=== PATIENT | male | born 1990 ===

== ENCOUNTER 2022-10-02 | Outpatient (REF) | payer SELFPAY ==
[2022-10-03 12:43] LABS: HIV AB/AG Nonreactive (Nonreactive); HIV Num 1 0.05 S/CO (0.00-0.99)
[2022-10-03 12:46] LABS: ~HepC Num1 0.13 S/CO (0.00-0.79); ~Hepatitis C Antibody Nonreactive (Nonreactive)
[2022-10-03 15:16] LABS: CT PCR NOT DETECTED (Not Detect.); NG PCR NOT DETECTED (Not Detect.)
[2022-10-04 04:21] LABS: Syphilis Screen Nonreactive (Nonreactive)
[2022-10-04 10:09] LABS: Herpes Simplex Type 2 IgG <0.90 index
== END 2022-10-02 00:01 | disposition home or self-care (01) ==
LOC: HO.LAB
PROVIDERS: Visit Provider Family Medicine
DX: Z11.4 Encounter for screening for human immunodeficiency virus [HIV] (principal); R21 Rash and other nonspecific skin eruption; Z20.2 Contact with and (suspected) exposure to infections with a predominantly sexual mode of transmission
CPT/HCPCS: 0353U; 36415; 86695; 86696; 86780; 86803; 87255; 87389

== ENCOUNTER 2022-10-03 10:32 | Outpatient (REF) | payer SELFPAY | END 2022-10-03 10:33 | disposition home or self-care (01) | LOC: HO.HHCL 10:32 | PROVIDERS: Visit Provider Family Medicine | DX: Z13.89 Encounter for screening for other disorder (principal) | CPT/HCPCS: 0353U; 36415; 86695; 86696; 86780; 86803; 87389 ==

== ENCOUNTER 2023-11-09 14:56 | Outpatient (AMB) | payer MEDICAID, SELFPAY ==
--- NOTE | 2023-11-09 15:04 | MHC.OFFVIS ---
Intake Visit Reasons: Circumcision Consult Intake Note: Jermaine is a 33 year old male who presents to the office today for a circumcision consultation. Enamel Pulverizer Required: Yes Enamel Pulverizer Language: Beninese [place] Enamel Pulverizer Name: Aly([id number]) Information Interpreted: non-clinical & clinical Allergies No Known Allergies Allergy (Verified 11/09/23 15:07) Medication List - Last Reconciled 11/09/23 by Carter Sutherland MD clotrimazole-betamethasone 1-0.05 % 1 appl topical BID PRN 2 weeks HPI Comments Details: Jermaine is a 33 year old male with history of balanitis, he states he was treated with a cream which did not clear up the problen and then was prescribed pills which worked. He is referred for discussion on circumcision. He denies h/o STD's, he states he is sexually active, does not use a condom, heterosexual with one partner. The patient is not diabetic. Exam today is normal, foreskin easily retracted. I have discussed that if his partner has a vaginal yeast infection it can be transferred to him and have discussed the importance of good hygiene. At this time will prescribed lotrisone cream to use as needed and will hold on circumcision, if balanitis becomes a reoccurring problem will reevaluate for circumcision at that time. Review of Systems Const All systems reviewed & are unremarkable except as noted in HPI and below Reports no additional complaints Eyes Reports no additional complaints ENT Reports no additional complaints Card Reports no additional complaints Resp Reports no additional complaints GI Reports no additional complaints Reports as per HPI Musc Reports no additional complaints Skin/Breast Reports system reviewed and no additional complaints, except as documented Neuro Reports no additional complaints Psych Reports no additional complaints Endo Reports no additional complaints Zak/Lymph Reports no additional complaints Aller/Immun Reports no additional complaints Physical Exam Const General: healthy appearing, no acute distress and well developed Orientation/consciousness: patient oriented x3 HEENT Head: Yes normocephalic and Yes atraumatic Eyes Conjunctivae: conjunctivae normal Neck Neck: Yes normal visual inspection Chest Chest palpation & inspection: normal inspection of the chest Resp Effort & Inspection: normal respiratory effort Cardio Rate: regular rate GI Inspection: Yes normal to inspection Palpation (GI): Soft to palpation Penis: normal penis and uncircumcised Scrotum: scrotum normal Skin General skin exam: no rashes or lesions noted Neuro General: patient oriented x3 Extrem General: No pedal edema Psych Appearance: grossly normal Affect: normal affect Assessment & Plan Assessment & Plan (1) Balanitis: Code(s): N48.1 - Balanitis Category: Medical (2) Redundant foreskin: Code(s): N47.8 - Other disorders of prepuce Category: Medical Plan lotrisone cream to use as needed and will hold on circumcision, if balanitis becomes a reoccurring problem will reevaluate for circumcision at that time. Medications: New clotrimazole-betamethasone 1-0.05 % 1 appl topical BID 2 weeks PRN 45 grams 1RF irritation on genital area Patient Instructions: The patient had an opportunity to ask questions regarding treatment plan. The patient expressed understanding and agreement with the above treatment plan. The patient is aware they should contact our office by phone for worsening of their current condition or the appearance of new symptoms. Compliance is encouraged with any medications and followup testing that is ordered. It is a privilege to be allowed the opportunity to participate in the urologic care of your patient. If you have any questions or concerns regarding treatment for the above conditions please do not hesitate to contact me. The office telephone contact is [phone]. This note is constructed in part using voice recognition software. While every effort has been made to ensure accuracy tear down matcher errors may have been included. Yours sincerely, Carter Sutherland MD Coding Level of Care Code New Pt Level 4 (32860) Diagnoses Balanitis N48.1 Redundant foreskin N47.8
== END 2023-11-09 15:36 | disposition home or self-care (01) ==
LOC: HO.HUSH 14:56
PROVIDERS: PCP Family Medicine; Visit Provider Urology
DX: N48.1 Balanitis (principal); N47.8 Other disorders of prepuce
CPT/HCPCS: 99204

== ENCOUNTER → 2023-11-09 14:56 | Outpatient (BNVA) | payer MEDICAID, SELFPAY | PROVIDERS: PCP Family Medicine; Visit Provider Urology | DX: N48.1 Balanitis (principal); N47.8 Other disorders of prepuce | CPT/HCPCS: 99202 ==